=== PATIENT | male | born 1955 | race Caucasian/White ===

== ENCOUNTER 2017-01-09 12:55 | Emergency (ER) | payer OTHER ==
[~2017-01-09] VITALS: Ht 162.6 cm; Wt 92.3 kg
[~2017-01-09 12:55] MED LIST: ADVIL200 MG PO; AMLODIPINE BESYL5 MG PO; ASPIR 8181 M1 PO; ATORVASTATIN CA80 MG PO; BACTRIM,SEPT1 TABLET PO; CITALOPRAM HBR20 MG PO; CLONIDINE HCL0.1 MG PO; COLCRYS0.6 MG PO; DESYREL100 MG PO; FAMOTIDINE20 MG PO; GEMFIBROZIL600 MG PO; IBUPROFEN200 M1 PO; LIPITOR80 MG PO; LOPRESSOR25 MG PO; METOPROLOL TART25 MG PO; MOTRIN800 MG PO; NABUMETONE500 MG PO; NABUMETONE750 MG PO; NO HOME MEDS; PERCOCET 5/31 TABLET PO; TRAZODONE HCL50 MG PO
[2017-01-09 13:26] LABS: EOSINOPHIL (%) 2.5 % (0-5); EOSINOPHIL COUNT 0.2 K/uL (0-0.3); HEMATOCRIT 47.3 % (38.0-50.0); IMMATURE GRANULOCYTE (%) 0.2 % (0.0-0.7); INSTRUMENT ABS NEUTROPHIL CT 3.9 K/uL; LYMPHOCYTE COUNT 4.6 K/uL (1.0-2.8); MCH 32.9 PG (29.0-34.0); MCV 96.7 FL (86-99); MEAN PLAT.VOLUME 9.3 uM^3 (9.0-12.4); MONOCYTE (%) 8.9 % (3-12); MONOCYTE COUNT 0.9 K/uL (0-0.8); NEUTROPHIL COUNT 3.9 K/uL (1.8-6.4); PLATELET COUNT 231 K/uL (156-360); RBC DIS.WIDTH-CV 13.3 % (11.8-14.6); RBC DIS.WIDTH-SD 48.1 % (39-53); RED BLOOD COUNT 4.89 M/uL (4.00-5.50); WHITE BLOOD COUNT 9.7 K/uL (4.1-10.2)
[2017-01-09 13:36] LABS: CHLORIDE 111 mEq/L (99-109); POTASSIUM 4.1 mEq/L (3.7-5.4); SODIUM 143 mEq/L (136-147)
[2017-01-09 13:38] LABS: GLUCOSE 110 mg/dL (70-99)
[2017-01-09 13:39] LABS: ANION GAP 12 MEQ/L (2-14)
[2017-01-09 13:41] LABS: SERUM ETHYL ALCOHOL 361 mg/dL
[2017-01-09 13:42] LABS: GFR ESTIMATE (CALCULATED) > 59 mL/min/
[2017-01-09 13:43] LABS: UREA NITROGEN (BUN) 23 mg/dL (9-23)
[2017-01-09 13:52] VITALS: BP 146/74
== END 2017-01-09 13:53 ==
LOC: EME 12:55
PROVIDERS: Emergency Medicine
DX: F10.129 Alcohol abuse with intoxication, unspecified (principal); Y90.8 Blood alcohol level of 240 mg/100 ml or more; E78.5 Hyperlipidemia, unspecified; F17.200 Nicotine dependence, unspecified, uncomplicated
CPT/HCPCS: 80048; 81003; 85025; 99281; 99284; G0480

== ENCOUNTER 2017-07-12 02:43 | Inpatient (IN) | payer OTHER ==
[~2017-07-12] VITALS: Ht 162.6 cm; Wt 78.5 kg
[2017-07-12 03:40] LABS: HEMATOCRIT 45.4 % (38.0-50.0); HEMOGLOBIN 15.9 G/DL (12.5-16.6); MCV 97.2 FL (86-99); PLATELET COUNT 199 K/uL (156-360); RBC DIS.WIDTH-CV 12.6 % (11.8-14.6); RBC DIS.WIDTH-SD 44.9 % (39-53); RED BLOOD COUNT 4.67 M/uL (4.00-5.50)
[2017-07-12 03:53] LABS: ALBUMIN 4.8 g/dL (3.2-4.8); CHLORIDE 108 mEq/L (99-109); POTASSIUM 4.1 mEq/L (3.7-5.4); SODIUM 141 mEq/L (136-147)
[2017-07-12 03:56] LABS: GLUCOSE 160 mg/dL (70-99); TOTAL PROTEIN 8.1 g/dL (6.4-8.3)
[2017-07-12 03:57] LABS: TOTAL BILIRUBIN 0.8 mg/dL (0.0-1.0)
[2017-07-12 03:59] LABS: ALKALINE PHOSPHATASE 87 IU/L (3-129); CREATININE 1.2 mg/dL (0.6-1.3); GFR ESTIMATE (CALCULATED) > 59 mL/min/ (58.99-99999)
[2017-07-12 04:00] LABS: UREA NITROGEN (BUN) 23 mg/dL (9-23)
[2017-07-12 04:01] LABS: AST (GOT) 21 IU/L (2-34)
[2017-07-12 04:02] LABS: ALT (GPT) 14 IU/L (3-49)
[2017-07-12 04:03] LABS: LIPASE 16 U/L (1.0-51.0)
[2017-07-12 04:30] LABS: CREATINE KINASE 156 IU/L (1-294)
[2017-07-12 04:44] LABS: APPEARANCE CLOUDY ((CLEAR)); BILIRUBIN NEGATIVE; BLOOD MODERATE; COLOR AMBER ((YELLOW)); GLUCOSE (STRIP) NEGATIVE; KETONES 5; LEUKOCYTES MODERATE; NITRITE NEGATIVE; PROTEIN (STRIP) >=500; SPECIFIC GRAVITY 1.017 (1.000-1.030); UROBILINOGEN 0.2 MG/DL (0.2-1.0)
[2017-07-12 05:08] LABS: AMORPHOUS PHOSPHATE CRYSTALS 1+; BACTERIA 3+ /HPF; EPITHELIAL CELLS NONE SEEN /HPF; MUCUS NONE SEEN /LPF; RED BLOOD CELLS TNTC /HPF (0-5); TRIPLE PHOSPHATE CRYSTALS RARE /HPF; UCUL ADDED? YES; WHITE BLOOD CELLS NONE SEEN /HPF (0-5)
[2017-07-12 07:10] LABS: SOURCE URINE
[2017-07-12] MEDS ORDERED: AMLODIPINE BESYL5 MG PO (10:20)
[2017-07-12] MEDS ORDERED: CITALOPRAM HBR20 MG PO (10:20)
[2017-07-12] MEDS ORDERED: ASPIR-LOW81 MG PO (10:21)
[2017-07-12 11:34] LABS: CHLORIDE 110 mEq/L (99-109); POTASSIUM 4.2 mEq/L (3.7-5.4); SODIUM 143 mEq/L (136-147)
[2017-07-12 11:36] LABS: GLUCOSE 147 mg/dL (70-99)
[2017-07-12 11:40] LABS: CREATININE 0.9 mg/dL (0.6-1.3); GFR ESTIMATE (CALCULATED) > 59 mL/min/ (58.99-99999)
[2017-07-12 11:41] LABS: UREA NITROGEN (BUN) 19 mg/dL (9-23)
[2017-07-12 12:03] VITALS: BP 195/90
[2017-07-12 12:46] LABS: CHLAMYDIA TRACHOMATIS NEGATIVE; NEISSERIA GONORRHOEAE NEGATIVE
[2017-07-12 15:31] VITALS: BP 159/82
[2017-07-13 00:03] VITALS: BP 125/65
[2017-07-13 07:11] VITALS: BP 160/74
[2017-07-13 07:24] LABS: CHLORIDE 107 MEQ/L (99-109); CREATININE 0.7 MG/DL (0.6-1.3); GFR ESTIMATE (CALCULATED) > 59 mL/min/ (58.99-99999); POTASSIUM 3.9 MEQ/L (3.7-5.4); SODIUM 139 MEQ/L (136-147); UREA NITROGEN (BUN) 13 mg/dL (9-23)
[2017-07-13 07:29] LABS: GLUCOSE 99 mg/dL (70-99)
[2017-07-13 07:30] LABS: BASOPHIL (%) 0.2 % (0-1); EOSINOPHIL (%) 0.4 % (0-5); HEMATOCRIT 39.5 % (38.0-50.0); IMMATURE GRANULOCYTE (%) 0.5 % (0.0-0.7); LYMPHOCYTE (%) 21.4 % (15-42); LYMPHOCYTE COUNT 1.8 K/uL (1.0-2.8); MCHC 33.2 G/DL (30.0-36.0); MCV 99.5 FL (86-99); MONOCYTE (%) 8.9 % (3-12); MONOCYTE COUNT 0.7 K/uL (0-0.8); NEUTROPHIL (%) 68.6 % (45-76); NEUTROPHIL COUNT 5.7 K/uL (1.8-6.4); PLATELET COUNT 149 K/uL (156-360); RBC DIS.WIDTH-CV 12.5 % (11.8-14.6); RED BLOOD COUNT 3.97 M/uL (4.00-5.50); WHITE BLOOD COUNT 8.4 K/uL (4.1-10.2)
[2017-07-13 07:32] LABS: HEMOGLOBIN 13.1 G/DL (12.5-16.6)
[2017-07-13 11:00] VITALS: BP 158/76
[2017-07-13 15:47] VITALS: BP 148/80
[2017-07-13 23:30] VITALS: BP 157/88
[2017-07-14] VITALS (7 sets, daily range): BP systolic 118–190; BP diastolic 65–94
[2017-07-14] MEDS ORDERED: VALSARTAN160 MG PO (20:38)
[2017-07-14] MEDS ORDERED: AMLODIPINE BESY10 MG PO (20:38)
[2017-07-14] MEDS ORDERED: CIPROFLOXACIN500 M1 PO (20:38)
[2017-07-14] MEDS ORDERED: ENDOCET 5-3251 EACH PO (20:40)
[2017-07-14] MEDS ORDERED: HYDRALAZINE HCL25 MG PO (20:56)
[2017-07-15 08:42] VITALS: BP 146/73
== END 2017-07-15 11:35 | disposition home or self-care (01) | DRG 728 ==
LOC: EME → EDBD 02:43 → 5EAST 08:20 → EDOF 08:20 → ENRESERV 08:30 → 5EAST 11:31 → ENPENDDIS 07-15 → EDPENDDISTM 07-15 11:15 → 5EAST 07-15 11:35
PROVIDERS: Emergency Medicine; Family Medicine Sports Medicine
DX: N41.2 Abscess of prostate (principal); N30.91 Cystitis, unspecified with hematuria; E87.2 Acidosis; N40.1 Benign prostatic hyperplasia with lower urinary tract symptoms; R33.8 Other retention of urine; N35.014 Post-traumatic urethral stricture, male, unspecified; E78.5 Hyperlipidemia, unspecified; F17.210 Nicotine dependence, cigarettes, uncomplicated; F32.9 Major depressive disorder, single episode, unspecified; I10 Essential (primary) hypertension; I25.10 Atherosclerotic heart disease of native coronary artery without angina pectoris; J45.909 Unspecified asthma, uncomplicated; K21.9 Gastro-esophageal reflux disease without esophagitis; M10.9 Gout, unspecified; F41.9 Anxiety disorder, unspecified
CPT/HCPCS: 74177; 76770; 80048; 80048 91; 80053; 81003; 82550; 83690; 85025; 85027; 87086; 87491; 87591; 99281; 99285; J0696; J0744; J1650; J2270; J3010; J7030

== ENCOUNTER 2017-12-09 06:55 | Observation (INO) | payer OTHER ==
[~2017-12-09] VITALS: Ht 162.6 cm; Wt 78.2 kg
[~2017-12-09 06:55] MED LIST changes: +AMLODIPINE BESY10 MG PO; +ASPIR-LOW81 MG PO; +CIPROFLOXACIN500 M1 PO; +ENDOCET 5-3251 EACH PO; +HYDRALAZINE HCL25 MG PO; +VALSARTAN160 MG PO
[2017-12-09 07:25] LABS: HEMATOCRIT 43.9 % (38.0-50.0); MCH 34.2 PG (29.0-34.0); MCHC 36.4 G/DL (30.0-36.0); MCV 93.8 FL (86-99); PLATELET COUNT 89 K/uL (156-360); RBC DIS.WIDTH-CV 12.9 % (11.8-14.6); RBC DIS.WIDTH-SD 44.4 % (39-53); RED BLOOD COUNT 4.68 M/uL (4.00-5.50); WHITE BLOOD COUNT 5.8 K/uL (4.1-10.2)
[2017-12-09 07:56] LABS: TROP-I INTERPRETATION NEGATIVE; TROPONIN-I < 0.01 ng/mL (0.0-0.30)
[2017-12-09 07:58] LABS: CHLORIDE 90 MEQ/L (99-109); CREATININE 2.4 MG/DL (0.6-1.3); GFR ESTIMATE (CALCULATED) 29 mL/min/ (58.99-99999); GLUCOSE 119 mg/dL (70-99); POTASSIUM 3.2 MEQ/L (3.7-5.4); SODIUM 130 MEQ/L (136-147); UREA NITROGEN (BUN) 22 mg/dL (9-23)
[2017-12-09] MEDS ORDERED: VITAMIN B-1100 MG PO (09:41)
[2017-12-09] MEDS ORDERED: LIBRIUM25 MG PO ×2 (09:41→10:00)
[2017-12-09 10:03] LABS: SERUM ETHYL ALCOHOL < 10 mg/dL
[2017-12-09] MEDS ORDERED: APRESOLINE25 MG PO (11:45)
[2017-12-09] MEDS ORDERED: ATORVASTATIN CA40 MG PO (11:47)
[2017-12-09 12:50] VITALS: BP 108/70
[2017-12-09 12:51] LABS: MAGNESIUM 1.7 mg/dl (1.3-2.7)
[2017-12-09 14:39] LABS: TROP-I INTERPRETATION NEGATIVE; TROPONIN-I < 0.01 ng/mL (0.0-0.30)
[2017-12-09 14:43] LABS: APPEARANCE SL.HAZY ((CLEAR)); BILIRUBIN NEGATIVE; BLOOD NEGATIVE; COLOR YELLOW ((YELLOW)); GLUCOSE (STRIP) NEGATIVE; KETONES NEGATIVE; LEUKOCYTES TRACE; NITRITE NEGATIVE; PROTEIN (STRIP) 30; SPECIFIC GRAVITY 1.033 (1.000-1.030); UROBILINOGEN 0.2 MG/DL (0.2-1.0)
[2017-12-09 14:56] LABS: BACTERIA NONE SEEN /HPF; EPITHELIAL CELLS RARE /HPF; HYALINE CASTS 0-5 /LPF; MUCUS TRACE /LPF; UCUL ADDED? NO; WHITE BLOOD CELLS 0-5 /HPF (0-5)
[2017-12-09 15:34] LABS: CHLORIDE 97 MEQ/L (99-109); POTASSIUM 3.2 MEQ/L (3.7-5.4); SODIUM 130 MEQ/L (136-147)
[2017-12-09 15:40] LABS: GFR ESTIMATE (CALCULATED) > 59 mL/min/ (58.99-99999); GLUCOSE 107 mg/dL (70-99); UREA NITROGEN (BUN) 18 mg/dL (9-23)
[2017-12-09 15:42] LABS: CREATININE 1.2 MG/DL (0.6-1.3)
[2017-12-09 16:00] VITALS: BP 117/67
[2017-12-09 20:18] LABS: TROP-I INTERPRETATION NEGATIVE; TROPONIN-I < 0.01 ng/mL (0.0-0.30)
[2017-12-10 01:07] VITALS: BP 106/73
[2017-12-10 04:46] VITALS: BP 136/73
[2017-12-10 05:44] LABS: BASOPHIL (%) 0.4 % (0-1); EOSINOPHIL (%) 1.1 % (0-5); EOSINOPHIL COUNT 0.1 K/uL (0-0.3); HEMATOCRIT 35.8 % (38.0-50.0); IMMATURE GRANULOCYTE (%) 0.2 % (0.0-0.7); LYMPHOCYTE (%) 50.4 % (15-42); LYMPHOCYTE COUNT 2.3 K/uL (1.0-2.8); MCH 33.8 PG (29.0-34.0); MCHC 34.6 G/DL (30.0-36.0); MCV 97.5 FL (86-99); MONOCYTE (%) 12.1 % (3-12); MONOCYTE COUNT 0.6 K/uL (0-0.8); NEUTROPHIL (%) 35.8 % (45-76); NEUTROPHIL COUNT 1.6 K/uL (1.8-6.4); PLATELET COUNT 74 K/uL (156-360); RBC DIS.WIDTH-SD 46.4 % (39-53); WHITE BLOOD COUNT 4.5 K/uL (4.1-10.2)
[2017-12-10 05:46] LABS: HEMOGLOBIN 12.4 G/DL (12.5-16.6); RED BLOOD COUNT 3.67 M/uL (4.00-5.50)
[2017-12-10 05:59] LABS: ALBUMIN 3.3 G/DL (3.2-4.8); ALKALINE PHOSPHATASE 58 IU/L (3-129); ALT (GPT) 21 IU/L (3-49); AST (GOT) 45 IU/L (2-34); CHLORIDE 105 MEQ/L (99-109); CREATININE 0.8 MG/DL (0.6-1.3); DIRECT BILIRUBIN 0.2 mg/dL (0.0-0.3); GFR ESTIMATE (CALCULATED) > 59 mL/min/ (58.99-99999); GLUCOSE 91 mg/dL (70-99); POTASSIUM 3.7 MEQ/L (3.7-5.4); TOTAL BILIRUBIN 1.1 MG/DL (0.0-1.0); TOTAL PROTEIN 5.5 G/DL (6.4-8.3); UREA NITROGEN (BUN) 12 mg/dL (9-23)
[2017-12-10 06:01] LABS: SODIUM 137 MEQ/L (136-147)
[2017-12-10 07:09] VITALS: BP 130/70
[2017-12-10 07:10] VITALS: BP 124/70; BP 126/72; BP 130/70
[2017-12-10 08:08] LABS: BENZODIAZEPINES, URINE SCREEN Negative (200 ng/mL)
[2017-12-10] MEDS ORDERED: THERAGRAN1 TABLET PO (09:12)
[2017-12-10] MEDS ORDERED: Thiamine,Vitamin B1 PO (09:12)
[2017-12-10] MEDS ORDERED: FOLIC ACID1 MG PO (09:12)
[2017-12-10] MEDS ORDERED: PREDNISONE10 MG PO (09:17)
[2017-12-10] MEDS ORDERED: VENTOLIN HFA18 GM IH (09:17)
== END 2017-12-10 11:14 | disposition home or self-care (01) ==
LOC: EME 06:55 → EDOF 11:48 → 4SOUTH 11:48 → EDOF 11:48 → ENRESERV 11:49 → 4SOUTH 12:39
PROVIDERS: Physician Assistant Medical; Student in an Organized Health Care Education/Training Program
DX: R55 Syncope and collapse (principal); E86.0 Dehydration; F10.230 Alcohol dependence with withdrawal, uncomplicated; N17.9 Acute kidney failure, unspecified; E87.6 Hypokalemia; E87.1 Hypo-osmolality and hyponatremia; I35.1 Nonrheumatic aortic (valve) insufficiency; F17.210 Nicotine dependence, cigarettes, uncomplicated; I10 Essential (primary) hypertension; E78.5 Hyperlipidemia, unspecified; R73.03 Prediabetes; I25.10 Atherosclerotic heart disease of native coronary artery without angina pectoris; K21.9 Gastro-esophageal reflux disease without esophagitis; F32.9 Major depressive disorder, single episode, unspecified; G89.29 Other chronic pain; D69.6 Thrombocytopenia, unspecified; Z87.440 Personal history of urinary (tract) infections; Z88.8 Allergy status to other drugs, medicaments and biological substances
CPT/HCPCS: 70450; 71046; 71275; 76770; 80048; 80048 91; 80076; 80306 90; 81003; 82948; 83605; 83735; 84484; 85025; 85027; 93005; 99281; 99285; G0378; G0480; G8978 GP CH; G8979 GP CH; G8980 GP CH; J2060; J7030; J7120

== ENCOUNTER 2017-12-22 08:07 | Inpatient (IN) | payer OTHER ==
[~2017-12-22] VITALS: Ht 165.1 cm; Wt 72.6 kg
[~2017-12-22 08:07] MED LIST changes: +APRESOLINE25 MG PO; +ATORVASTATIN CA40 MG PO; +FOLIC ACID1 MG PO; +LIBRIUM25 MG PO; +PREDNISONE10 MG PO; +THERAGRAN1 TABLET PO; +Thiamine,Vitamin B1 PO; +VENTOLIN HFA18 GM IH; +VITAMIN B-1100 MG PO
[2017-12-22] MEDS ORDERED: AMLODIPINE BESY10 MG PO (08:38)
[2017-12-22] MEDS ORDERED: APRESOLINE25 MG PO (08:38)
[2017-12-22 09:01] LABS: ALBUMIN 4.5 g/dL (3.2-4.8); CHLORIDE 92 mEq/L (99-109); POTASSIUM 2.8 mEq/L (3.7-5.4); SODIUM 132 mEq/L (136-147)
[2017-12-22 09:03] LABS: GLUCOSE 176 mg/dL (70-99); TOTAL PROTEIN 7.7 g/dL (6.4-8.3)
[2017-12-22 09:05] LABS: TOTAL BILIRUBIN 2.2 mg/dL (0.0-1.0)
[2017-12-22 09:06] LABS: SERUM ETHYL ALCOHOL < 10 mg/dL
[2017-12-22 09:07] LABS: ALKALINE PHOSPHATASE 80 IU/L (3-129); CREATININE 2.3 mg/dL (0.6-1.3); GFR ESTIMATE (CALCULATED) 31 mL/min/ (58.99-99999)
[2017-12-22 09:08] LABS: UREA NITROGEN (BUN) 12 mg/dL (9-23)
[2017-12-22 09:09] LABS: AST (GOT) 63 IU/L (2-34)
[2017-12-22 09:10] LABS: ALT (GPT) 47 IU/L (3-49); LIPASE 79 U/L (1.0-51.0)
[2017-12-22 09:13] LABS: TROP-I INTERPRETATION NEGATIVE; TROPONIN-I 0.02 ng/mL (0.0-0.30)
[2017-12-22 09:14] LABS: HEMATOCRIT 41.8 % (38.0-50.0); MCH 34.2 PG (29.0-34.0); MCHC 36.6 G/DL (30.0-36.0); RBC DIS.WIDTH-CV 13.3 % (11.8-14.6); RBC DIS.WIDTH-SD 45.6 % (39-53); WHITE BLOOD COUNT 8.1 K/uL (4.1-10.2)
[2017-12-22 09:15] LABS: HEMOGLOBIN 15.3 G/DL (12.5-16.6); MCV 93.5 FL (86-99); PLATELET COUNT 121 K/uL (156-360); RED BLOOD COUNT 4.47 M/uL (4.00-5.50)
[2017-12-22 09:47] LABS: INTER. NORMALIZED RATIO 1.1
[2017-12-22 09:55] LABS: DIRECT BILIRUBIN 1.1 mg/dL (0.0-0.3)
[2017-12-22 12:05] LABS: CHLORIDE 96 MEQ/L (99-109); POTASSIUM 3.1 MEQ/L (3.7-5.4); SODIUM 135 MEQ/L (136-147); UREA NITROGEN (BUN) 11 mg/dL (9-23)
[2017-12-22 12:17] LABS: CREATININE 1.7 MG/DL (0.6-1.3); GFR ESTIMATE (CALCULATED) 44 mL/min/ (58.99-99999); GLUCOSE 99 mg/dL (70-99)
[2017-12-22 13:36] LABS: APPEARANCE CLEAR ((CLEAR)); BILIRUBIN NEGATIVE; BLOOD NEGATIVE; COLOR YELLOW ((YELLOW)); GLUCOSE (STRIP) NEGATIVE; KETONES NEGATIVE; LEUKOCYTES NEGATIVE; NITRITE NEGATIVE; PROTEIN (STRIP) NEGATIVE; SPECIFIC GRAVITY 1.004 (1.000-1.030); UROBILINOGEN 0.2 MG/DL (0.2-1.0)
[2017-12-22 13:54] LABS: AMPHETAMINE NEGATIVE (500 ng/mL); BARBITURATES NEGATIVE (200 ng/mL); BENZODIAZEPINES NEGATIVE (150 ng/mL); BUPRENORPHINE NEGATIVE (10 ng/mL); COCAINE NEGATIVE (150 ng/mL); METHADONE NEGATIVE (200 ng/mL); METHAMPHETAMINE NEGATIVE (500 ng/mL); OPIATES (MORPHINE) PRESUMPTIVE POSITIVE (100 ng/mL); OXYCODONE NEGATIVE (100 ng/mL); PHENCYCLIDINE NEGATIVE (25 ng/mL); PROPOXYPHENE NEGATIVE (300 ng/mL); THC CANNABINOIDS NEGATIVE (50 ng/mL); TRICYCLIC ANTIDEPRESSANTS NEGATIVE (300 ng/mL)
[2017-12-22 14:10] LABS: MAGNESIUM 1.2 mg/dL (1.3-2.7)
[2017-12-22 16:50] VITALS: BP 128/77
[2017-12-22 19:17] VITALS: BP 116/70
[2017-12-22 23:38] VITALS: BP 118/65
[2017-12-23 03:43] VITALS: BP 119/68
[2017-12-23 07:19] LABS: HEMATOCRIT 34.5 % (38.0-50.0); MCH 33.9 PG (29.0-34.0); MCHC 33.9 G/DL (30.0-36.0); RBC DIS.WIDTH-CV 13.8 % (11.8-14.6); RBC DIS.WIDTH-SD 50.9 % (39-53); WHITE BLOOD COUNT 3.4 K/uL (4.1-10.2)
[2017-12-23 07:20] LABS: HEMOGLOBIN 11.7 G/DL (12.5-16.6); PLATELET COUNT 83 K/uL (156-360); RED BLOOD COUNT 3.45 M/uL (4.00-5.50)
[2017-12-23 07:45] LABS: ALBUMIN 3.2 G/DL (3.2-4.8); ALKALINE PHOSPHATASE 57 IU/L (3-129); ALT (GPT) 23 IU/L (3-49); AST (GOT) 28 IU/L (2-34); CHLORIDE 109 MEQ/L (99-109); GFR ESTIMATE (CALCULATED) > 59 mL/min/ (58.99-99999); GLUCOSE 99 mg/dL (70-99); POTASSIUM 4.3 MEQ/L (3.7-5.4); SODIUM 141 MEQ/L (136-147); TOTAL BILIRUBIN 0.9 MG/DL (0.0-1.0); TOTAL PROTEIN 5.1 G/DL (6.4-8.3); UREA NITROGEN (BUN) 9 mg/dL (9-23)
[2017-12-23 08:15] VITALS: BP 141/84
[2017-12-23 11:56] VITALS: BP 143/77
[2017-12-23] MEDS ORDERED: Thiamine,Vitamin B1 PO (14:50)
[2017-12-23] MEDS ORDERED: FOLIC ACID1 MG PO (14:50)
== END 2017-12-23 15:45 | disposition home or self-care (01) | DRG 897 ==
LOC: EME 08:07 → EDOF 13:23 → 3EAST 13:23 → ENRESERV 13:25 → 3EAST 16:19
PROVIDERS: Family Medicine Sports Medicine; Nurse Practitioner Family
DX: F10.239 Alcohol dependence with withdrawal, unspecified (principal); N17.9 Acute kidney failure, unspecified; F10.229 Alcohol dependence with intoxication, unspecified; E87.6 Hypokalemia; I95.9 Hypotension, unspecified; E86.0 Dehydration; F32.9 Major depressive disorder, single episode, unspecified; I10 Essential (primary) hypertension; E78.5 Hyperlipidemia, unspecified; G62.9 Polyneuropathy, unspecified; D64.9 Anemia, unspecified; J44.9 Chronic obstructive pulmonary disease, unspecified; K21.9 Gastro-esophageal reflux disease without esophagitis; K29.70 Gastritis, unspecified, without bleeding; F41.9 Anxiety disorder, unspecified; F17.210 Nicotine dependence, cigarettes, uncomplicated; Z71.6 Tobacco abuse counseling; Z59.0 Homelessness
CPT/HCPCS: 74176; 80048 91; 80053; 81003; 82248; 83690; 83735; 84484; 84999; 85027; 85610; 85730; 93005; 99281; 99285; G0480; J1650; J2060; J3411; J3480; J7030; J7040